=== PATIENT | female | born 1945 | race Caucasian/White ===

== ENCOUNTER → 2018-02-25 10:33 | Outpatient (CLI) | payer MEDICARE, OTHER, SELFPAY ==
[2018-02-25 12:25] LABS: Add Manual Diff / Slide Review NO; Eosinophils Percent Auto 3.3 % (2-4); Hematocrit 40.9 % (36-46); Hemoglobin 13.8 g/dL (12.0-16.0); Lymphocytes Percent Auto 19.9 % (25-40); Mean Corpuscular HGB Conc 33.8 % (30-36); Mean Corpuscular Hemoglobin 32.6 PG (26-34); Mean Corpuscular Volume 96.5 fL (80-100); Monocytes Percent Auto 6.5 % (3-14); Neutrophils Absolute Auto 6100 /uL (3000-5900); Neutrophils Percent Auto 69.3 % (50-75); Platelet Count 211 X10^3/uL (150-400); Red Blood Cell Count 4.23 X10^6/uL (4.0-5.2); White Blood Cell Count 8.8 X10^3/uL (4.5-11.0)
[2018-02-25 12:52] LABS: Alanine Aminotransferase 21 IU/L (9-52); Albumin Globulin Ratio 1.7 (1.0-2.8); Alkaline Phosphatase 71 U/L (38-126); Aspartate Aminotransferase 19 IU/L (14-36); Bilirubin Total 0.8 mg/dL (0.2-1.3); Bilirubin Unconjugated 0.5 mg/dL (0.0-1.1); Globulin 2.4 g/dL (1.7-4.1); HEMOLYSIS < 15 (0-50); Total Protein 6.4 g/dL (6.3-8.2)
== END ==
PROVIDERS: PCP Family Medicine
DX: G70.00 Myasthenia gravis without (acute) exacerbation (principal)
CPT/HCPCS: 36415; 80076; 85025

== ENCOUNTER → 2018-04-23 11:24 | Outpatient (CLI) | payer MEDICARE, OTHER, SELFPAY ==
[2018-04-23 13:15] LABS: Add Manual Diff / Slide Review NO; Basophils Percent Auto 1.1 % (0-2); Eosinophils Percent Auto 2.8 % (2-4); Hemoglobin 14.6 g/dL (12.0-16.0); Lymphocytes Percent Auto 21.3 % (25-40); Mean Corpuscular HGB Conc 33.2 % (30-36); Mean Corpuscular Hemoglobin 32.1 PG (26-34); Mean Corpuscular Volume 96.5 fL (80-100); Monocytes Percent Auto 7.2 % (3-14); Neutrophils Absolute Auto 5300 /uL (3000-5900); Neutrophils Percent Auto 67.6 % (50-75); Platelet Count 205 X10^3/uL (150-400); Red Blood Cell Count 4.56 X10^6/uL (4.0-5.2); White Blood Cell Count 7.8 X10^3/uL (4.5-11.0)
[2018-04-23 13:43] LABS: Alanine Aminotransferase 26 IU/L (9-52); Albumin 4.3 g/dL (3.5-5.0); Albumin Globulin Ratio 1.4 (1.0-2.8); Alkaline Phosphatase 76 U/L (38-126); Aspartate Aminotransferase 22 IU/L (14-36); Bilirubin Total 0.7 mg/dL (0.2-1.3); Bilirubin Unconjugated 0.4 mg/dL (0.0-1.1); HEMOLYSIS < 15 (0-50); Total Protein 7.3 g/dL (6.3-8.2)
== END ==
PROVIDERS: PCP Family Medicine; Visit Provider Psychiatry & Neurology Neurology
DX: G70.00 Myasthenia gravis without (acute) exacerbation (principal)
CPT/HCPCS: 36415; 80076; 85025

== ENCOUNTER → 2018-05-21 08:08 | Outpatient (CLI) | payer MEDICARE, OTHER, SELFPAY ==
[2018-05-21 10:01] LABS: Add Manual Diff / Slide Review NO; Basophils Percent Auto 1.4 % (0-2); Eosinophils Percent Auto 4.9 % (2-4); Hematocrit 42.6 % (36-46); Hemoglobin 14.4 g/dL (12.0-16.0); Lymphocytes Percent Auto 41.9 % (25-40); Mean Corpuscular HGB Conc 33.8 % (30-36); Mean Corpuscular Hemoglobin 31.9 PG (26-34); Mean Corpuscular Volume 94.3 fL (80-100); Monocytes Percent Auto 10.2 % (3-14); Neutrophils Absolute Auto 2400 /uL (3000-5900); Neutrophils Percent Auto 41.6 % (50-75); Platelet Count 180 X10^3/uL (150-400); Red Blood Cell Count 4.52 X10^6/uL (4.0-5.2); Red Cell Distribution Width 12.9 % (11.6-14.8); White Blood Cell Count 5.9 X10^3/uL (4.5-11.0)
[2018-05-21 10:32] LABS: Alanine Aminotransferase 14 IU/L (9-52); Albumin 4.2 g/dL (3.5-5.0); Albumin Globulin Ratio 1.6 (1.0-2.8); Alkaline Phosphatase 56 U/L (38-126); Aspartate Aminotransferase 21 IU/L (14-36); BUN Creatinine Ratio 32.2 (6-22); Bilirubin Total 0.6 mg/dL (0.2-1.3); Bilirubin Unconjugated 0.3 mg/dL (0.0-1.1); Blood Urea Nitrogen 29 mg/dL (7-17); Calcium 9.8 mg/dL (8.4-10.2); Carbon Dioxide 30 mmol/L (22-32); Chloride 103 mmol/L (98-107); Cholesterol 170 mg/dL (140-199); Estimated Glomerular Filt Rate > 60.0 mL/min (>60); Globulin 2.7 g/dL (1.7-4.1); Glucose 84 mg/dL (80-110); HDL Cholesterol 52 mg/dL (40-60); HEMOLYSIS < 15 (0-50); LDL Cholesterol Calculated 103 mg/dL (<100); Sodium 138 mmol/L (137-145); Total Protein 6.9 g/dL (6.3-8.2); Triglycerides 75 mg/dL (35-150)
[2018-05-21 10:36] LABS: Free T3, Triiodothyronine Free 2.33 pg/mL (2.77-5.27); Free T4, Direct Thyroxine 1.73 ng/dL (0.78-2.19)
[2018-05-21 10:49] LABS: Thyroid Stimulating Hormone 1.01 uIU/mL (0.47-4.68)
[2018-05-21 11:32] LABS: Appearance Urine UA CLOUDY; Bilirubin Urine UA NEGATIVE (NEGATIVE); Color Urine UA YELLOW; Glucose Urine UA NEGATIVE (Normal); Ketones Urine UA NEGATIVE (NEGATIVE); Leukocyte Esterase Urine UA TRACE (NEGATIVE); Nitrite Urine UA Negative (Negative); Occult Blood Urine UA NEGATIVE (Negative); Protein Urine UA NEGATIVE (Negative); Specific Gravity Urine UA 1.015 (1.000-1.035); Urobilinogen Urine UA 0.2 E.U./dL (0.2); pH Urine UA 5.5 (4.5-8.0)
[2018-05-21 12:03] LABS: Bacteria Urine Few (2-10); Culture Indicated Urine Cult Not Indicated; RBC Urine 0-1/HPF (0-5/HPF); Squamous Epithelial Cell Urine 5-10 /HPF; WBC Urine 1-5/HPF (0-5/HPF)
== END ==
PROVIDERS: PCP Family Medicine; Referring Provider Psychiatry & Neurology Neurology; Visit Provider Family Medicine
DX: G70.00 Myasthenia gravis without (acute) exacerbation (principal); I10 Essential (primary) hypertension; E03.9 Hypothyroidism, unspecified; E78.5 Hyperlipidemia, unspecified
CPT/HCPCS: 36415; 80053; 80061; 80076; 81003; 81015; 84439; 84443; 84481; 85025

== ENCOUNTER → 2018-06-19 10:44 | Outpatient (CLI) | payer MEDICARE, OTHER, SELFPAY ==
[2018-06-19 12:10] LABS: Add Manual Diff / Slide Review NO; Eosinophils Percent Auto 4.9 % (2-4); Hematocrit 42.1 % (36-46); Hemoglobin 13.9 g/dL (12.0-16.0); Lymphocytes Percent Auto 27.2 % (25-40); Mean Corpuscular HGB Conc 33.1 % (30-36); Mean Corpuscular Hemoglobin 31.4 PG (26-34); Mean Corpuscular Volume 95.1 fL (80-100); Neutrophils Absolute Auto 4600 /uL (3000-5900); Neutrophils Percent Auto 57.9 % (50-75); Platelet Count 201 X10^3/uL (150-400); Red Blood Cell Count 4.43 X10^6/uL (4.0-5.2); Red Cell Distribution Width 13.3 % (11.6-14.8)
[2018-06-19 12:46] LABS: Alanine Aminotransferase 17 IU/L (9-52); Albumin 4.1 g/dL (3.5-5.0); Albumin Globulin Ratio 1.5 (1.0-2.8); Alkaline Phosphatase 76 U/L (38-126); Aspartate Aminotransferase 20 IU/L (14-36); Bilirubin Total 0.7 mg/dL (0.2-1.3); Bilirubin Unconjugated 0.4 mg/dL (0.0-1.1); Globulin 2.7 g/dL (1.7-4.1); HEMOLYSIS < 15 (0-50); Total Protein 6.8 g/dL (6.3-8.2)
== END ==
PROVIDERS: PCP Family Medicine; Visit Provider Psychiatry & Neurology Neurology
DX: G70.00 Myasthenia gravis without (acute) exacerbation (principal)
CPT/HCPCS: 36415; 80076; 85025

== ENCOUNTER → 2019-04-01 15:49 | Outpatient (CLI) | payer MEDICARE, OTHER, SELFPAY ==
[2019-04-01 16:23] LABS: Erythrocyte Sedimentation Rate 9 MM/HR (0-20)
[2019-04-03 15:19] LABS: ANA Screen, IFA Negative (Negative)
== END ==
PROVIDERS: PCP Family Medicine; Visit Provider Hospitalist
DX: M25.569 Pain in unspecified knee (principal); M25.50 Pain in unspecified joint
CPT/HCPCS: 36415; 85651; 86038

== ENCOUNTER → 2019-06-03 08:43 | Outpatient (CLI) | payer MEDICARE, OTHER, SELFPAY ==
[2019-06-03 09:31] LABS: Add Manual Diff / Slide Review NO; Basophils Absolute Auto 100 /uL (0-100); Basophils Percent Auto 0.8 % (0-2); Eosinophils Absolute Auto 300 /uL (0-450); Hematocrit 41.6 % (36-46); Lymphocytes Absolute Auto 1700 /uL (1100-4500); Lymphocytes Percent Auto 24.1 % (25-40); Mean Corpuscular HGB Conc 33.6 % (30-36); Mean Corpuscular Hemoglobin 31.6 PG (26-34); Monocytes Absolute Auto 600 /uL (0-900); Monocytes Percent Auto 8.6 % (3-14); Neutrophils Absolute Auto 4400 /uL (1500-7000); Neutrophils Percent Auto 62.5 % (50-75); Platelet Count 178 X10^3/uL (150-400); Red Blood Cell Count 4.43 X10^6/uL (4.0-5.2); Red Cell Distribution Width 13.5 % (11.6-14.8)
[2019-06-03 10:01] LABS: Alanine Aminotransferase 13 IU/L (9-52); Albumin 4.3 g/dL (3.5-5.0); Albumin Globulin Ratio 1.4 (1.0-2.8); Alkaline Phosphatase 64 U/L (38-126); Aspartate Aminotransferase 18 IU/L (14-36); BUN Creatinine Ratio 37.1 (6-22); Bilirubin Total 0.7 mg/dL (0.2-1.3); Bilirubin Unconjugated 0.4 mg/dL (0.0-1.1); Blood Urea Nitrogen 26 mg/dL (7-17); Calcium 9.6 mg/dL (8.4-10.2); Carbon Dioxide 28 mmol/L (22-32); Chloride 101 mmol/L (98-107); Cholesterol 147 mg/dL (140-199); Estimated Glomerular Filt Rate > 60.0 mL/min (>60); Glucose 103 mg/dL (80-110); HDL Cholesterol 54 mg/dL (40-60); HEMOLYSIS < 15 (0-50); LDL Cholesterol Calculated 73 mg/dL (<100); Potassium 3.7 mmol/L (3.4-5.1); Sodium 139 mmol/L (137-145); Total Protein 7.3 g/dL (6.3-8.2); Triglycerides 101 mg/dL (35-150)
[2019-06-03 10:02] LABS: Creatinine Urine Random 63.2 mg/dL
[2019-06-03 10:07] LABS: Microalbumi Creatinin Ratio Ur 9.4 ug/mg CR (<30); Microalbumin Urine Random < 0.6 mg/dL (0-1.6)
[2019-06-03 10:18] LABS: Free T3, Triiodothyronine Free 2.39 pg/mL (2.77-5.27); Free T4, Direct Thyroxine 1.45 ng/dL (0.78-2.19)
[2019-06-03 10:31] LABS: Thyroid Stimulating Hormone 2.09 uIU/mL (0.47-4.68)
== END ==
PROVIDERS: PCP Family Medicine; Visit Provider Family Medicine
DX: G70.00 Myasthenia gravis without (acute) exacerbation (principal); E03.9 Hypothyroidism, unspecified; E78.5 Hyperlipidemia, unspecified; I10 Essential (primary) hypertension
CPT/HCPCS: 36415; 80053; 80061; 80076; 82043; 82570; 84439; 84443; 84481; 85025

== ENCOUNTER → 2023-03-28 11:10 | Outpatient (CLI) | payer MEDICARE, OTHER, SELFPAY ==
[2023-03-28 13:29] LABS: TSH w/ Reflex to FT4 0.19 uIU/mL (0.47-4.68)
[2023-03-28 14:03] LABS: Free T4, Direct Thyroxine 2.14 ng/dL (0.78-2.19)
== END ==
PROVIDERS: Referring Provider Family Medicine; Visit Provider Family Medicine
DX: E03.9 Hypothyroidism, unspecified (principal)
CPT/HCPCS: 36415; 84439; 84443

== ENCOUNTER → 2023-05-23 11:08 | Outpatient (CLI) | payer MEDICARE, OTHER, SELFPAY ==
[2023-05-23 12:59] LABS: TSH w/ Reflex to FT4 1.04 uIU/mL (0.47-4.68)
== END ==
PROVIDERS: Referring Provider Family Medicine; Visit Provider Family Medicine
DX: E03.9 Hypothyroidism, unspecified (principal)
CPT/HCPCS: 36415; 84443

== ENCOUNTER → 2023-06-26 15:33 | Outpatient (CLI) | payer MEDICARE, OTHER, SELFPAY ==
--- NOTE | 2023-06-26 15:41 | DI.RAD.S_ITS ---
PROCEDURE: XR SHOULDER RT MIN 2V INDICATIONS: fall onto shoulder today, reduced ROM, chronic arthritis TECHNIQUE: 2 views of the shoulder were acquired. COMPARISON: None. FINDINGS: Bones: Oblique, displaced fracture involving the proximal right humerus. Acromioclavicular and glenohumeral joint osteoarthritis. Soft tissues: No suspicious soft tissue calcifications. IMPRESSION: Proximal right humerus fracture. Dictated by: Soraya Velasquez MD, PhD on 06/26/2023 at 16:16 Approved by: Soraya Velasquez MD, PhD on 06/26/2023 at 16:17
== END ==
PROVIDERS: Referring Provider Student in an Organized Health Care Education/Training Program; Visit Provider Student in an Organized Health Care Education/Training Program
DX: S42.201A Unspecified fracture of upper end of right humerus, initial encounter for closed fracture (principal); S46.911A Strain of unspecified muscle, fascia and tendon at shoulder and upper arm level, right arm, initial encounter; M89.8X2 Other specified disorders of bone, upper arm; M19.011 Primary osteoarthritis, right shoulder; W19.XXXA Unspecified fall, initial encounter
CPT/HCPCS: 73030

== ENCOUNTER 2023-06-26 16:03 | Emergency (ER) | payer MEDICARE, OTHER, SELFPAY ==
[2023-06-26 16:30] VITALS: PULSE 54; RESP 16; TEMP 35.7; O2SAT 98; BMI 36.3
[2023-06-26] MEDS: OXYCODONE IR 5 MG TABLET PO (17:02)
[2023-06-26] MEDS: ACETAMINOPHEN 325 MG TABLET 975 MG PO (17:02)
--- NOTE | 2023-06-26 17:40 | ED.UPPEXIN ---
HPI - Extremity Injury (Upper) <Chey Briseno PA-C - Last Filed: 06/26/23 19:01> General Chief Complaint: Extremity Injury, Upper Stated Complaint: R shoulder? Time Seen by Provider: 06/26/23 16:44 Mode of arrival: Ambulatory History of Present Illness HPI narrative: Patient is a 77-year-old female who was having her carpets cleaned today when she tripped over electrical cord the hospital cleaner had left plugged in. She fell on her right arm and immediately felt severe pain. She came to the hospital and an x-ray was ordered showing a displaced proximal humerus fracture. She was sent to the emergency room for further management. She is not taken any medications. She does not take any blood thinners. She has a history of significant osteoarthritis. Related Data Home Medications Medication Instructions Recorded Confirmed ASPIRIN (Aspirin EC) 81 mg PO Q DAY ##0 03/14/11 06/26/23 [PROBIOTIC] ##0 12/18/16 06/26/23 [TUMERIC] 740 mg PO QDAY ##0 12/18/16 06/26/23 cholecalciferol (vitamin D3) 50 1 tab PO QDAY ##0 12/18/16 06/26/23 mcg (2,000 unit) tablet (Vitamin D3) ascorbic acid (vitamin C) 1,000 mg 1 gram PO Q6H 04/01/19 06/26/23 tablet melatonin 10 mg tablet 10 mg PO BEDTIME PRN 04/01/19 06/26/23 milk thistle 150 mg capsule 150 mg PO BID 04/01/19 06/26/23 omega-3 fatty acids 2,500 mg PO DAILY 04/01/19 06/26/23 vitamin E mixed 1,000 unit capsule 1,000 unit PO DAILY 04/01/19 06/26/23 amitriptyline 10 mg tablet 10 mg PO ONCE PM 06/26/23 06/26/23 Previous Rx's Medication Instructions Recorded mycophenolate mofetil 250 mg 1,000 mg PO BID #30 caps 06/09/18 capsule (CellCept) zolpidem 10 mg tablet (Ambien) 10 mg PO HS #90 tabs 06/09/19 levothyroxine 125 mcg tablet 125 mcg PO QDAY #90 tabs 02/16/20 (Synthroid) metoprolol succinate 100 mg 100 mg PO QDAY #90 tabs 02/16/20 tablet,extended release 24 hr (Toprol XL) rosuvastatin 5 mg tablet (Crestor) 5 mg PO HS #90 tabs 02/16/20 triamterene 37.5 1 cap PO BID #180 caps 02/16/20 mg-hydrochlorothiazide 25 mg capsule (Dyazide) oxycodone 5 mg tablet See Rx Instructions .Route 06/26/23 .COMPLEX PRN pain #10 tabs Allergies Allergy/AdvReac Type Severity Reaction Status Date / Time No Known Drug Allergies Allergy Verified 06/26/23 16:34 Review of Systems <Chey Briseno PA-C - Last Filed: 06/26/23 19:01> Review of Systems ROS Unobtainable: All systems reviewed & are unremarkable except as noted in HPI and below Patient History <Chey Briseno PA-C - Last Filed: 06/26/23 19:01> Medical History Anxiety Breast cancer (1994) Hyperlipemia Hypertension Hypothyroidism Insomnia Myasthenia gravis Shoulder pain (~01/2012) Surgical History History of ankle surgery History of total mastectomy (1994) Hx of tonsillectomy Family History Brother History of heart valve replacement Father No problems noted. Mother No problems noted. Social History Smoking Status: Former smoker Smoking Status: Former smoker Substance Use Type: does not use Exam <Chey Briseno PA-C - Last Filed: 06/26/23 19:01> Narrative Exam Narrative: GENERAL: 77 year old patient appears stated age. Well-developed patient, in mild distress. NEURO: AOx3. HEAD: Atraumatic. Normocephalic. EYES: Pupils equal round and reactive. Extraocular motions intact. No scleral icterus. No injection or drainage. ENT: Nose without bleeding or purulent drainage. Airway patent. RESPIRATORY: No distress EXTREMITIES: Edema over humerus. Sensation, movement, capillary refill intact in right distal hand. Hand is warm. Radial pulse 2 +. Able to flex and extend the wrist. SKIN: No rash or erythema of visible areas. No open wound. Initial Vital Signs Initial Vital Signs: Vital Signs Temperature 96.2 F L 06/26/23 16:30 Pulse Rate 54 L 06/26/23 16:30 Respiratory Rate 16 06/26/23 16:30 Pulse Oximetry 98 06/26/23 16:30 Oxygen Delivery Method Room Air 06/26/23 16:30 <Janeth Parmar DO - Last Filed: 06/26/23 19:36> Initial Vital Signs Initial Vital Signs: Vital Signs Temperature 96.2 F L 06/26/23 16:30 Pulse Rate 54 L 06/26/23 16:30 Respiratory Rate 16 06/26/23 16:30 Pulse Oximetry 98 06/26/23 16:30 Oxygen Delivery Method Room Air 06/26/23 16:30 Course <Chey Briseno PA-C - Last Filed: 06/26/23 19:01> Orders Ordered: Discontinued Medications Acetaminophen (Acetaminophen 325 Mg Tablet) 975 mg PO NOW ONE Stop: 06/26/23 16:54 Last Admin: 06/26/23 17:02 Dose: 975 mg Documented By: LAVELL Morphine Sulfate (Morphine 4 Mg/Ml Inj) 4 mg IV NOW ONE Stop: 06/26/23 16:45 Oxycodone HCl (Oxycodone Ir 5 Mg Tablet) 5 mg PO NOW ONE Stop: 06/26/23 16:54 Last Admin: 06/26/23 17:02 Dose: 5 mg Documented By: LAVELL Consultations Consultation #1: Dr. Cabello, orthopedics: Advised to discharge home in [facility], patient to call and schedule outpatient follow up with [facility]. Vital Signs Vital signs: Vital Signs - 8 hr 06/26/23 16:30 06/26/23 18:47 Temperature 96.2 F L Pulse Rate 54 L 56 L Respiratory Rate 16 16 Pulse Oximetry 98 99 Oxygen Delivery Method Room Air Room Air <Janeth Parmar DO - Last Filed: 06/26/23 19:36> Orders Ordered: Discontinued Medications Acetaminophen (Acetaminophen 325 Mg Tablet) 975 mg PO NOW ONE Stop: 06/26/23 16:54 Last Admin: 06/26/23 17:02 Dose: 975 mg Documented By: LAVELL Morphine Sulfate (Morphine 4 Mg/Ml Inj) 4 mg IV NOW ONE Stop: 06/26/23 16:45 Oxycodone HCl (Oxycodone Ir 5 Mg Tablet) 5 mg PO NOW ONE Stop: 06/26/23 16:54 Last Admin: 06/26/23 17:02 Dose: 5 mg Documented By: LAVELL Vital Signs Vital signs: Vital Signs - 8 hr 06/26/23 16:30 06/26/23 18:47 Temperature 96.2 F L Pulse Rate 54 L 56 L Respiratory Rate 16 16 Pulse Oximetry 98 99 Oxygen Delivery Method Room Air Room Air MDM - Extremity Injury (Upper) <Chey Briseno PA-C - Last Filed: 06/26/23 19:01> Imaging Data Extremity x-ray #1: Radiologist's Impression: PROCEDURE:? XR SHOULDER RT MIN 2V ? INDICATIONS:? fall onto shoulder today, reduced ROM, chronic arthritis ? TECHNIQUE:? 2 views of the shoulder were acquired.? ? COMPARISON:? None. ? FINDINGS:? ? Bones:? Oblique, displaced fracture involving the proximal right humerus.? Acromioclavicular and glenohumeral joint osteoarthritis. ? Soft tissues:? No suspicious soft tissue calcifications.? ? IMPRESSION:? Proximal right humerus fracture. ? ? Dictated by: Soraya Velasquez MD, PhD on 06/26/2023 at 16:16 ? ? Approved by: Soraya Velasquez MD, PhD on 06/26/2023 at 16:17 ? [facility] Narrative Medical decision making narrative: Multiple etiologies for patient's symptoms considered including, but not limited to: Humerus fracture, shoulder injury hematoma. X-ray consistent with dislocated proximal humerus fracture. Placed in sling. Distal neurovascular exam normal. Pain controlled with 5 mg oxycodone and Tylenol. Discussed discharge pain medication. Advised patient to call [facility] for outpatient follow-up. Patient's symptoms improved over duration of stay with above-stated therapies. Findings and discharge diagnosis discussed with patient/family followed by verbalization of understanding Return precautions discussed with patient/family whom verbalize understanding of diagnosis and plan Discharge Plan Departure Patient Disposition: Home Clinical Impression: Closed fracture of proximal end of right humerus Instructions: DI for Fracture Activity Restrictions/Additional Instructions: *You have been diagnosed with a humerus fracture. You should wear your sling for support. Continue taking Aleve as you do, and add Tylenol up to 3000 mg, within every 24 hour period. I will also write you for some opiate pain medication that you can use for severe pain when the Aleve and Tylenol is not enough. Keep your arm elevated to reduce swelling. Apply an ice pack for 15 minutes every 2-3 hours while awake. Call [facility] to schedule a follow up appointment. You have been prescribed a short course of narcotic medications. These are potentially dangerous and addictive medications that should be used carefully. While on these medications you cannot drive or operate heavy machinery. Do not drink alcohol or use other sedative medications while you are taking this medication. Additionally, you cannot sign legal documents or perform any duties such as this. Many people get constipated on narcotic medications so it would be advisable to discuss stool softeners with the pharmacist when you slat pickler your prescription. Please understand that we cannot provide further refills of narcotics or controlled substances through the ED and your pain management will need to be through your Primary Care Provider. *What to do: *Please continue to take your regular medications as directed. [x ] New medication prescriptions sent to your pharmacy: [facility] [ ] New medication written as a paper prescription [ ] No new medications given *Please follow up with your primary care provider in 2-3 days, call for an appointment. Let them know you were seen in the Emergency Department and that we ask that you be seen in follow up. We will electronically transmit a record of today's note if your PCP is in our system *If you do not have a primary care provider please contact the [facility] Resource line at [phone]. They will ask some questions about your medical history and help get you set up with a doctor in the community. *Return to Emergency Department if you should have any new, worsening or concerning symptoms, such as [fever greater than 101 F, shaking chills, worsening pain, persistent vomiting or other concerning symptoms]. Prescriptions: New oxycodone 5 mg tablet See Rx Instructions .ROUTE .COMPLEX PRN (Reason: pain) Qty: 10 0RF Rx Instructions: Take 1/2 to 1 tablet every 6 hours as needed for severe pain, in addition to tylenol and aleve. No Action mycophenolate mofetil [CellCept] 250 mg capsule 1,000 mg PO BID Qty: 30 0RF amitriptyline 10 mg tablet 10 mg PO ONCE PM ASPIRIN (Aspirin EC) 81 mg PO Q DAY Qty: 0 cholecalciferol (vitamin D3) [Vitamin D3] 2,000 UNIT tablet 1 tab PO QDAY Qty: 0 [PROBIOTIC] Qty: 0 [TUMERIC] 740 mg PO QDAY Qty: 0 levothyroxine [Synthroid] 125 mcg tablet 125 mcg PO QDAY Qty: 90 0RF triamterene-hydrochlorothiazid [Dyazide] 37.5-25 mg capsule 1 cap PO BID Qty: 180 0RF rosuvastatin [Crestor] 5 mg tablet 5 mg PO HS Qty: 90 0RF metoprolol succinate [Toprol XL] 100 mg tablet extended release 24 hr 100 mg PO QDAY Qty: 90 0RF zolpidem [Ambien] 10 mg tablet 10 mg PO HS Qty: 90 0RF omega-3 fatty acids capsule 2,500 mg PO DAILY ascorbic acid (vitamin C) 1,000 mg tablet 1 gram PO Q6H vitamin E mixed 1,000 unit capsule 1,000 unit PO DAILY milk thistle 150 mg capsule 150 mg PO BID melatonin 10 mg tablet 10 mg PO BEDTIME PRN Referrals: [facility] [Provider Group] Stand Alone Forms: Patient Portal/API <Janeth Parmar DO - Last Filed: 06/26/23 19:36> Cosign ED Attending Cosignature Attestation: I was immediately available in the department for consultation. Documentation has been reviewed. Case was reviewed, imaging reviewed. Patient is pretty neurovascularly intact with full range of motion. Consultation with Orthopedic surgery to review images.
[2023-06-26 18:47] VITALS: PULSE 56; RESP 16; O2SAT 99
== END 2023-06-26 18:48 | disposition home or self-care (01) ==
PROVIDERS: Emergency Provider Physician Assistant
DX: S42.291A Other displaced fracture of upper end of right humerus, initial encounter for closed fracture (principal); S42.201A Unspecified fracture of upper end of right humerus, initial encounter for closed fracture; S46.911A Strain of unspecified muscle, fascia and tendon at shoulder and upper arm level, right arm, initial encounter; M89.8X2 Other specified disorders of bone, upper arm; M19.011 Primary osteoarthritis, right shoulder; W01.0XXA Fall on same level from slipping, tripping and stumbling without subsequent striking against object, initial encounter
CPT/HCPCS: 73030; 99283